=== PATIENT | male | born 1970 | race Caucasian/White ===

== ENCOUNTER 2023-05-17 11:20 | Outpatient (REF) | payer MEDICAID, SELFPAY ==
[2023-05-17 13:19] LABS: MANUAL DIFF FLAG NO
[2023-05-17 13:37] LABS: Basophils Percent Auto 0.7 % (0-2); Eosinophils Absolute Auto 0.1 X10*3/uL (0.0-0.4); Eosinophils Percent Auto 2.3 % (0-4); Hematocrit 37.5 % (42.0-52.0); Hemoglobin 12.1 g/dl (14.0-18.0); Imm Gran Abs Auto 0.01 X10*3/uL (0.00-0.03); Imm Gran Pct Auto 0.2 % (0.0-0.4); Lymphocytes Absolute Auto 1.5 X10*3/uL (1.2-4.9); Mean Corpuscular HGB Conc 32.3 g/dl (31.0-36.0); Mean Corpuscular Hemoglobin 26.7 pg (27.0-33.0); Mean Corpuscular Volume 82.8 fL (80.0-98.0); Mean Platelet Volume 10.7 fL (9.4-12.4); Monocytes Absolute Auto 0.4 X10*3/uL (0.1-1.2); Monocytes Percent Auto 6.9 % (2-11); Neutrophils Absolute Auto 3.6 x10*3/uL (2.0-8.3); Neutrophils Percent Auto 63.9 % (45-73); Platelet Count 225 X10*3/uL (160-400); Red Blood Count 4.53 X10*6/uL (4.60-5.80); Red Cell Distribution Width 13.2 % (11.0-16.0); White Blood Count 5.7 X10*3/uL (4.8-10.8)
[2023-05-17 14:01] LABS: Alanine Aminotransferase 13 U/L (0-40); Alkaline Phosphatase 89 U/L (39-117); Anion Gap 9 (12-20); Aspartate Amino Transferase 16 U/L (5-37); Bilirubin Total 0.6 mg/dL (0.0-1.0); Blood Urea Nitrogen 7 mg/dL (9-16); Calcium 9.4 mg/dL (8.4-10.2); Carbon Dioxide 26 mmol/L (22-29); Chloride 107 mmol/L (96-108); Cholesterol 133 mg/dL; Estimated Glomerular Filt Rate > 60; Glucose Random 106 mg/dL (60-115); HDL Cholesterol 37 mg/dL; LDL Cholesterol Calculated 84 mg/dl; Potassium 4.4 mmol/L (3.3-5.1); Sodium 138 mmol/L (135-145); Total Protein 7.9 g/dL (6.5-8.0); Triglycerides 61 mg/dL
[2023-05-17 14:15] LABS: TSH reflex Free T4 0.33 uIU/mL (0.32-4.0)
[2023-05-18 04:57] LABS: ~HepC Num1 13.92 S/CO (0.00-0.79); ~Hepatitis C Antibody Reactive (Nonreactive)
[2023-05-18 05:24] LABS: HBS Num1 > 1000.00 mIU/mL (0-7.99); HBc Num1 0.13 S/CO (0.00-0.79); Hepatitis A Antibody IgM 0.23 Index (0-0.79); Hepatitis B Core Antibody Nonreactive (Nonreactive); Hepatitis B Surface Antigen Negative (Negative); ~HepC Num1 14.14 S/CO (0.00-0.79); ~Hepatitis A Antibody IgM Nonreactive (Nonreactive); ~Hepatitis B Surface Antibody REACTIVE (Nonreactive); ~Hepatitis C Antibody Reactive (Nonreactive)
[2023-05-18 12:02] LABS: Syphilis Screen Nonreactive (Nonreactive)
[2023-05-18 13:54] LABS: CT PCR NOT DETECTED (Not Detect.); NG PCR NOT DETECTED (Not Detect.)
[2023-05-22 12:33] LABS: HCV Log PCR <1.18 NOT DETECTED Log IU/mL (NOT DETECTED); HepC Viral Load <15 NOT DETECTED IU/mL (NOT DETECTED)
== END 2023-05-17 11:21 | disposition home or self-care (01) ==
LOC: HO.HHCL 11:20
PROVIDERS: Visit Provider Family Medicine
DX: Z00.00 Encounter for general adult medical examination without abnormal findings (principal); R30.0 Dysuria
CPT/HCPCS: 0353U; 36415; 80053; 80061; 84443; 85025; 86704; 86706; 86709; 86780; 86803; 87255; 87340; 87522

== ENCOUNTER 2023-06-06 15:59 | Outpatient (REF) | payer MEDICAID, SELFPAY ==
[2023-06-06 18:02] LABS: Iron 58 mcg/dL (45-160); Percent Iron Saturation 24 % (15-50); Total Iron Binding Capacity 246 mcg/dL (228-428); Unsaturated Iron Binding 188 ug/dL
[2023-06-06 18:12] LABS: Ferritin 191 ng/mL (20-250); TSH reflex Free T4 0.32 uIU/mL (0.32-4.0)
[2023-06-06 18:25] LABS: Folate 10.7 ng/mL (> or = 4.0); Vitamin B12 466 pg/mL (200-900)
[2023-06-08 21:48] LABS: Herpes Simplex Type 2 IgG <0.90 index
== END 2023-06-06 16:00 | disposition home or self-care (01) ==
LOC: HO.HHCL 15:59
PROVIDERS: Visit Provider Family Medicine
DX: D64.9 Anemia, unspecified (principal); N48.9 Disorder of penis, unspecified; A60.02 Herpesviral infection of other male genital organs
CPT/HCPCS: 36415; 82607; 82728; 82746; 83540; 84443; 86695; 86696